=== PATIENT | male | born 1995 | race Caucasian/White ===

== ENCOUNTER 2020-09-19 04:16 | Outpatient (CLI) | payer OTHER, SELFPAY ==
[2020-09-19] MEDS: Albuterol HFA 18 GM 200 PUFF INH IH (15:45)
[2020-09-19] MEDS: Inhaler, Assist Device 1 EACH MC (15:46)
--- NOTE | 2020-09-21 17:40 | W.PFT ---
Date of service: 09/21/20 Time of Service: 02:57 Pulmonary Function Test Result Interpretation Spirometry: No evidence of obstructive airways disease, no bronchodilator response Impression Normal spirometry Clinical Correlation therefore is recommended.
== END 2020-09-19 04:17 | disposition home or self-care (01) ==
PROVIDERS: Visit Provider Orthopaedic Surgery
DX: R06.02 Shortness of breath (principal)
CPT/HCPCS: 94060

== ENCOUNTER 2020-11-17 21:30 | Emergency (ER) | payer BC, SELFPAY ==
[2020-11-17 21:55] VITALS: BP 137/80; PULSE 89; RESP 19; TEMP 36.9; O2SAT 98
--- NOTE | 2020-11-17 22:48 | ED.GENADUL_ITS ---
Discharge Plan Disposition Patient Disposition: HOME Condition: Stable Discharge Details Clinical Impression: Hematuria, Bloody ejaculation Primary Care Provider: Unknown,Unknown ED Provider: Babak Ramirez Discharge Instructions Instructions: Hematuria (ED) Additional Instructions: Please follow-up with urology. Call on Friday to schedule an appointment. Please contact your primary care physician to arrange follow-up. Please receive COVID-19 vaccination as soon as possible. Most local pharmacies have available vaccine. Call tomorrow. Return to the ER for any worsening or new concerning symptoms. Referrals: Mahin Crain MD [ [facility] STAFF PHYSICIAN] - Medical Decision Making 2299 --25-year-old male with history of intermittent nocturnal enuresis, presents with bloody ejaculation and hematuria post sexual activity. No concerning findings on exam. Patient urinated here in the emergency department and urine appears to be clearing with only small clot. CBC to assess for thrombocytopenia. -- CBC reviewed and normal platelets, no anemia. Urinalysis reviewed and does have some red blood cells in it. Patient is able to urinate. I will have him follow-up with urology. HPI General Mode of arrival: ambulatory . Date/Time Provider Initiated Documentation: 11/17/20 22:20 . Limitations to Documentation: no limitations . Information obtained by: patient . HPI Narrative: 25-year-old male presents with hematuria. Patient notes he was having sexual intercourse and did not have orgasm with ejacuation. Ejacuation felt like urination and there was no pleasurable sensation. He went to the bathroom and noted significant blood on his boxers and groin. He then urinated and noticed gregor blood clots. This occurred just prior to arrival. No modifiers. No associated dysuria or recent penile discharge. No testicular pain or swelling. Patient denies inserting any thing into his urethra. Patient states he had gregor blood in his urine in the remote past about 10 years ago and has not had a recurrent episodes until tonight. Typically he has normal orgasms with normal ejaculation. Patient does notes that every couple of months he experiences nocturnal enuresis chronically. General Stated Complaint: Urinary GEOVANNI: 4 Review of Systems All systems reviewed & are unremarkable except as noted in HPI and below Constitutional Constitutional: Denies fever(s) Genitourinary Genitourinary: Reports as per HPI [facility] Medical History Hematuria Pyloric antral stenosis Surgical History Hx of appendectomy Social History Smoking/Tobacco Use Status: Current-Occasional Tobacco Type: smokeless tobacco Tobacco: How many years used: 3 Smoking risk assessment performed?: Yes Alcohol Intake: current Alcohol Intake frequency: holidays/special occasions only Alcohol type: beer Substance use type: does not use Do you feel safe at home: Yes Do you feel safe in your relationship?: Yes Exam Const General: cooperative and no acute distress HENMT Head: normocephalic and atraumatic Mouth: moist mucous membranes Eyes Conjunctivae: normal conjunctivae Sclera: normal sclerae Resp Auscultation: clear to auscultation bilaterally, no rales, no rhonchi and no wheezes Cardio Rate: regular rate and not tachycardic Rhythm: regular rhythm GI Palpation: soft, not firm, no guarding, no masses, not rigid and nontender Penis: normal penis Meatus: meatus normal Scrotum: scrotum normal Testes: normal Back/Spine/Pelvis Back: no CVA tenderness Skin General skin exam: no rashes or lesions noted Neuro General: patient alert, patient awake, patient oriented x3 and tone normal Course Vital Signs Vital signs: Vital Signs Temperature 36.9 C 11/17/20 21:55 Pulse 89 11/17/20 21:55 Respiratory Rate 11/17/20 21:55 Blood Pressure 137/80 11/17/20 21:55 Pulse Oximetry 98 11/17/20 21:55 Temperature 36.9 C 11/17/20 21:55 Temperature Source Temporal Artery Scan 11/17/20 21:55 Pulse 89 11/17/20 21:55 Respiratory Rate 11/17/20 21:55 Respiratory Effort 11/17/20 21:59 Blood Pressure 137/80 11/17/20 21:55 Blood Pressure Position Sitting 11/17/20 21:55 Pulse Oximetry 98 11/17/20 21:55 Oxygen Delivery Method Room Air 11/17/20 21:55 Oxygen Flow Rate 0 11/17/20 21:55 Pain Level 0 11/17/20 21:59
[2020-11-17 23:00] LABS: Abs Immature Grans 0.07 10^3/uL (0.0-0.06); Absolute Basophil Count 0.04 10^3/uL (0.0-0.2); Absolute Eosinophil Count 0.16 10^3/uL (0.0-0.7); Absolute Lymphocyte Count 2.11 10^3/uL (1.2-3.4); Absolute Monocyte Count 0.42 10^3/uL (0.1-0.8); Basophils % 0.7; HCT 38.5 % (40.0-50.0); HGB 13.4 g/dL (13.5-17.5); Immature Grans % 1.3; Lymphocytes % 39.1; MCH 30.8 pg (27.0-33.0); MCHC 34.8 % (32.0-36.0); MCV 88.5 fL (80-95); MPV 9.5 fL (8.0-11.0); Monocytes % 7.8; Neutrophils % 48.1; Nucleated RBC 0 %; Platelet Count 241 10^3/uL (130-400); RBC 4.35 10^6/uL (4.36-5.78); RDW 11.9 % (11.8-14.1)
[2020-11-17 23:02] LABS: Bilirubin Negative (Negative); Blood Large (Negative); Clarity Cloudy (Clear); Glucose Negative (Negative); Ketones Trace mg/dL (Negative); Leukocyte Esterase Negative (Negative); Nitrite Negative (Negative); Specific Gravity >= 1.030 (1.005-1.025); Urobilinogen 0.2 EU/dL (Up TO 0.2)
--- NOTE | 2020-11-17 23:03 | NUR.NOTE ---
Referral to Care Management to establish pcp routinly-[facility] bloody ejaculation.Nursing Note:
[2020-11-17 23:10] LABS: C & S Indicated? No; RBC >50 HPF (0-2)
== END 2020-11-17 23:28 | disposition home or self-care (01) ==
PROVIDERS: Emergency Provider Student in an Organized Health Care Education/Training Program
DX: R36.1 Hematospermia (principal); R31.0 Gross hematuria
CPT/HCPCS: 36415; 99283; 81003; 81015; 85025

== ENCOUNTER 2023-05-22 17:10 | Emergency (ER) | payer OTHER, SELFPAY ==
[2023-05-22 17:19] VITALS: BP 150/89; PULSE 82; RESP 16; TEMP 36.5; O2SAT 97
--- NOTE | 2023-05-22 18:02 | W.ED.GENAD ---
Discharge Plan Disposition Patient Disposition: Home Condition: Good Discharge Details Clinical Impression: Corneal rust ring of left eye, Foreign body in eyeball, left Primary Care Provider: Unknown,Unknown ED Provider: Soham Gamble Home Meds and New Rx's Prescriptions: No Action No Known Home Meds Discharge Instructions Instructions: Eye Foreign Body (ED) Additional Instructions: At this time we are able to get the metal chunk out, however unfortunately there is still a small amount of rust on your eye. Please follow-up closely with Dr. Rivera's office tomorrow. They will contact you for the appointment time. If you do not hear from them by 9 AM, please call the number below. Please apply the erythromycin ointment to your eye every 4 hours. Please take Tylenol and Motrin as needed for pain. If you notice any worsening of your symptoms, or any new symptoms such as vomiting, diarrhea, fever, chills, shortness of breath, chest pain, numbness, weakness, or fainting , please return immediately to the emergency department for reevaluation. Please follow up with your primary care provider as soon as possible for reassessment and reevaluation. As always, it was a pleasure participating in your medical care today. Referrals: [facility] [Outside] HPI General Date/Time Provider Initiated Documentation: 05/22/23 17:11. HPI Narrative: 27-year-old male with no significant past medical history presents today for left eye pain. 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 He states that last night he felt like there was a slight irritation in his left eye. However when he woke up this morning it was notably worse. He describes a foreign body sensation in in the middle of his eye On the left. He does not wear contact lenses. He denies any visual changes otherwise. Light makes his symptoms worse. He denies any other complaints at this time. Tetanus was updated in 2018. Related Data Home Medications Medication Instructions Recorded Confirmed Unknown [No Known Home Meds] 12/21/20 05/22/23 Allergies Allergy/AdvReac Type Severity Reaction Status Date / Time No Known Allergies Allergy Verified 05/22/23 17:19 General Stated Complaint: EyeProblem GEOVANNI: 4 Review of Systems All systems reviewed & are unremarkable except as noted in HPI and below Exam Narrative Exam Narrative: 1.Const: Well-nourished, Well-developed, appearing stated age 2.Eyes: Right eye unremarkable. Left eye demonstrates a small metallic object right in front of the pupil on the left. There is a small amount of rust ring around it as well. PERRL, Peripheral vision intact. No nystagmus.No clinical signs of septal/orbital cellulitis, no redness around the eye, no proptosis. No hyphema, no signs of trauma around the eye, no periorbital emphysema. No sluggishness of the pupil. No ophthalmoplegia. No afferent pupillary defect. Fluorescein is positive for uptake at the central component., negative Eh sign. Visual acuity as documented in chart. Eversion of the upper and lower lid shows no foreign bodies. 3.ENT: Atraumatic external nose and ears. Moist MM. Neck: Symmetric, trachea midline, No thyromegaly. 4.CVS: +S1/S2, No murmurs or gallops. Peripheral pulses 2+ and equal in all extremities. Brisk capillary refill in all extremities. 5.RESP: Unlabored respiratory effort. Clear to auscultation bilaterally. No wheezes rales or rhonchi 6.GI: Soft, Nontender/Nondistended, No hepatosplenomegaly. No guarding or rebound. 7.MSK: Normocephalic/Atraumatic, Extremities w/o deformity or ttp No cyanosis or clubbing, Normal movement of all extremities 8.Skin: Warm, Dry. No rashes or lesions. 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 Sensation grossly intact, no focal neurologic deficits. 10.Psych: (AAO) x3. Appropriate mood and affect Course Vital Signs Vital signs: Vital Signs Temperature 36.5 C 05/22/23 17:19 Pulse 82 05/22/23 17:19 Respiratory Rate 16 05/22/23 17:19 Blood Pressure 150/89 H 05/22/23 17:19 Pulse Oximetry 97 05/22/23 17:19 Temperature 36.5 C 05/22/23 17:19 Temperature Source Temporal Artery Scan 05/22/23 17:19 Pulse 82 05/22/23 17:19 Respiratory Rate 16 05/22/23 17:19 Respiratory Effort Normal, Non-Labored 05/22/23 17:20 Blood Pressure 150/89 H 05/22/23 17:19 Blood Pressure Position Sitting 05/22/23 17:19 Pulse Oximetry 97 05/22/23 17:19 Oxygen Delivery Method Room Air 05/22/23 17:19 Oxygen Flow Rate 0 05/22/23 17:19 Pain Level 6 05/22/23 17:19 Procedures FB Removal Eye Time Out performed: Yes Location: eye (L) Topical anesthetic used: tetracaine Foreign body: metal Evidence of corneal penetration: No Technique: irrigation, cotton tip swab and needle Procedure performed under: direct visualization with magnification and slit-lamp Post-procedure medication: ophthalmic antibiotic and topical anesthetic Patient tolerated procedure: well and no complications Complications: residual rust ring Medical Decision Making 27-year-old male with no significant past medical history presents today for left eye pain. 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 He states that last night he felt like there was a slight irritation in his left eye. However when he woke up this morning it was notably worse. He describes a foreign body sensation in in the middle of his eye On the left. He does not wear contact lenses. He denies any visual changes otherwise. Light makes his symptoms worse. He denies any other complaints at this time. Tetanus was updated in 2018. Physical exam demonstrates a small metallic object that central left eye on the pupil area of the cornea. Unfortunately the metallic piece seem to be embedded. It was unable to be removed with cotton swab, or 18-gauge flexible plastic catheter tip. Discussed risk and benefits, TB needle was utilized to remove the metallic object, after this a small amount of the rust ring was also removed. A minimal amount of the rust ring was left afterwards, but because of the central location of the metallic object over the pupil, I did not feel that extensive optical burring would be ideal. With the very minimal amount of rust ring that is still present, we will have the patient follow-up closely tomorrow with [facility] eye care. Referral has been sent. Patient feels well. Erythromycin ointment was placed over the eye. He tolerated this well. No other evidence of foreign body on eversion of the upper and lower lid otherwise. No other abnormality. Patient will be discharged home with close follow-up. Discussed red flags which to return. I have extensively reviewed the treatment plan and discharge instructions with the patient and their family. I have addressed all patient concerns at this time. The patient and family was made aware of what symptoms to monitor for that would warrant a return to the emergency department. Discussed the plan with the patient and family, they demonstrate verbal understanding and agreement with our assessment and plan at this time. The documentation in this chart was dictated using [employer] dictation software. Please excuse any dictation errors. Quality:SDOH Health Related Social Needs: No Data to Display PFSH All Active Problems Foreign body in eyeball, left (Acute) Corneal rust ring of left eye (Acute) Hematuria (Acute) Bloody ejaculation (Acute) Medical History Pyloric antral stenosis Hematuria Surgical History Hx of appendectomy Social History Smoking/Tobacco Use Status: Current-Occasional Tobacco Type: cigarettes and smokeless tobacco Tobacco: How many years used: 3 Smoking risk assessment performed?: Yes Alcohol Intake: current Alcohol Intake frequency: holidays/special occasions only Alcohol type: beer Drug use: Never Substance use type: does not use Housing: apartment Do you feel safe at home: Yes Do you feel safe in your relationship?: Yes
--- NOTE | 2023-05-22 18:55 | NUR.NOTE ---
Nursing Note:PT needs follow up tomorrow with [facility] for a rust ring foreign body. Catia, ED
== END 2023-05-22 18:15 | disposition home or self-care (01) ==
PROVIDERS: Emergency Provider Student in an Organized Health Care Education/Training Program
DX: H57.12 Ocular pain, left eye (principal); W44.8XXA Other foreign body entering into or through a natural orifice, initial encounter; T15.02XA Foreign body in cornea, left eye, initial encounter
CPT/HCPCS: 65222; 99283; 99284

== ENCOUNTER 2023-11-21 00:45 | Outpatient (CLI) | payer OTHER, SELFPAY ==
--- NOTE | 2023-11-21 08:05 | DI.RAD_ITS ---
Exam(s) XR HIP RT COMPLETE AP PELVIS EXAM: XR HIP RT COMPLETE AP PELVIS CLINICAL HISTORY: RT HIP PAIN, M25.550 [id number]. TECHNIQUE: 2D digital imaging was performed. Two views COMPARISON: No exams were available for comparison FINDINGS: BONES: No acute fracture is present. No bony destructive lesion is seen. Slight deformity at the gleason perior margins of the femoral head neck junction which could indicate femoroacetabular impingement bi laterally, right greater than left. JOINTS: No dislocation present. Mild bilateral hip joint space narrowing. SOFT TISSUE: Normal. IMPRESSION: Findings suggesting femoroacetabular impingement right greater than left. DATA REPOSITORY: RADIATION DOSE DELIVERED:
--- NOTE | 2023-11-21 08:05 | DI.RAD_ITS ---
Exam(s) XR KNEE LT 2V AP,LAT EXAM: XR KNEE LT 2V AP,LAT CLINICAL HISTORY: LT KNEE PAIN M25.550 [id number]. TECHNIQUE: 2D digital imaging was performed. AP and lateral views. COMPARISON: No exams were available for comparison FINDINGS: BONES: No acute fracture is present. No bony destructive lesion is seen. JOINTS: The knee is normally aligned. No joint effusion is seen. SOFT TISSUE: Normal. IMPRESSION: Normal radiographs of the left knee. DATA REPOSITORY: RADIATION DOSE DELIVERED:
== END 2023-11-21 01:05 ==
LOC: DI 00:46
PROVIDERS: Visit Provider Internal Medicine
DX: M25.552 Pain in left hip (principal); M25.551 Pain in right hip
CPT/HCPCS: 73502; 73560

== ENCOUNTER 2025-01-21 15:13 | Outpatient (CLI) | payer OTHER, SELFPAY ==
[2025-01-21 15:27] LABS: ESR 3 mm/hr (0-15); HCT 40.2 % (40.0-50.0); HGB 14.1 g/dL (13.5-17.5); MCH 29.7 pg (27.0-33.0); MCHC 35.1 % (32.0-36.0); MCV 85 fL (80-95); MPV 9.2 fL (8.0-11.0); Platelet Count 252 10^3/uL (130-400); RBC 4.75 10^6/uL (4.36-5.78); RDW 11.9 % (11.8-14.1); RDW-SD 36.3 fL; WBC 5.47 10^3/uL (4.4-10.8)
[2025-01-21 16:07] LABS: ALT 71 U/L (10-49); AST 43 U/L (<34); Albumin 4.7 g/dL (3.4-5.0); Alkaline Phosphatase 62 U/L (46-116); Bilirubin, Direct 0.2 mg/dL (<=0.3); Bilirubin, Total 0.60 mg/dL (0.2-1.2); Total Protein 7.5 g/dL (5.7-8.2)
[2025-01-21 16:47] LABS: C-Reactive Protein < 0.50 mg/dL (<=0.50)
[2025-01-24 11:32] LABS: Lyme Ab w Rflx to Lyme Confirm Negative (Negative)
== END 2025-01-21 15:14 | disposition home or self-care (01) ==
LOC: LBO 15:17
PROVIDERS: Visit Provider Physician Assistant
DX: M25.50 Pain in unspecified joint (principal)
CPT/HCPCS: 36415; 80076; 85027; 85652; 86200; 86812; 86140; 86618